=== PATIENT | male | born 1955 ===

== ENCOUNTER → 2018-01-26 21:26 | Outpatient (REF) | payer OTHER, SELFPAY ==
[2018-01-26 21:37] LABS: Add Manual Diff / Slide Review NO; Basophils Percent Auto 1.7 % (0-2); Eosinophils Percent Auto 2.8 % (2-4); Hemoglobin 15.9 g/dL (13.5-17.5); Lymphocytes Percent Auto 38.1 % (25-40); Mean Corpuscular HGB Conc 33.1 % (30-36); Mean Corpuscular Hemoglobin 31.4 PG (26-34); Mean Corpuscular Volume 94.9 fL (80-100); Monocytes Percent Auto 13.8 % (3-14); Neutrophils Absolute Auto 1900 /uL (3000-5900); Neutrophils Percent Auto 43.6 % (50-75); Platelet Count 197 X10^3/uL (150-400); Red Blood Cell Count 5.05 X10^6/uL (4.5-5.9); Red Cell Distribution Width 16.2 % (11.6-14.8); White Blood Cell Count 4.4 X10^3/uL (4.5-11.0)
[2018-01-29 14:05] LABS: Sex Hormone Binding Globulin 43 nmol/L (22-77)
[2018-01-30 14:51] LABS: PSA Total 1.03 ng/mL (< 4.01)
[2018-01-30 16:30] LABS: Estradiol 30 pg/mL (< 40)
[2018-01-31 10:54] LABS: Testosterone Free 30.1 pg/mL (35.0-155.0); Testosterone Total 266 ng/dL (250-1100)
== END ==
LOC: LAB 21:26
PROVIDERS: Visit Provider Naturopath
DX: E29.1 Testicular hypofunction (principal); R53.83 Other fatigue
CPT/HCPCS: 82670; 82728; 84153; 84154; 84270; 84402; 84403; 85025